=== PATIENT | male | born 1975 | race Caucasian/White ===

== ENCOUNTER 2018-06-04 11:06 | Outpatient (CLI) | payer OTHER ==
[~2018-06-04 11:06] MED LIST: NABUMETONE500 MG PO; PERCOCET 5/3251 TAB PO
== END 2018-06-04 11:38 | disposition home or self-care (01) ==
LOC: MRI 11:06
DX: M25.571 Pain in right ankle and joints of right foot (principal); R60.0 Localized edema
CPT/HCPCS: 73721

== ENCOUNTER 2019-08-28 14:23 | Outpatient (CLI) | payer OTHER | END 2019-08-28 14:34 | disposition home or self-care (01) | LOC: LAB 14:23 | DX: J11.1 Influenza due to unidentified influenza virus with other respiratory manifestations (principal); R05 Cough ==